=== PATIENT | male | born 1945 | race Caucasian/White ===

== ENCOUNTER 2017-07-10 11:35 | Day surgery (SDC) | payer MEDICARE, BC ==
[~2017-07-10] VITALS: Ht 167.6 cm; Wt 87.5 kg
[~2017-07-10 11:35] MED LIST: AVAPRO TAB150 MG/TAB PO; COREG 25MG25 MG/TAB PO; COUMADIN4 MG PO; DARVOCET-N-101 UDTAB PO; LASIX 20MG TABL20 MG PO; LEXAPRO20 MG PO; LYRICA75 MG PO; NIACIN PO; NTG 0.4; VYTORIN PO
[2017-07-10] MEDS ORDERED: COZAAR 50MG50 MG/TAB PO (11:56)
[2017-07-10] MEDS ORDERED: NORCO 325 MG-101 TAB PO (11:56)
[2017-07-10] MEDS ORDERED: CRESTOR40 MG PO (11:57)
[2017-07-10] MEDS ORDERED: EPA FISH OIL1 SGL PO (11:57)
[2017-07-10] MEDS ORDERED: DEMADEX 20MG20 M1 PO (11:57)
[2017-07-10] MEDS ORDERED: CYMBALTA 20MG20 MG PO (11:58)
[2017-07-10 12:11] VITALS: BP 123/70; PULSE 80; TEMP 98.1
[2017-07-10] MEDS ORDERED: ZANTAC 150MG T150 MG PO (13:27)
[2017-07-10 13:35] VITALS: BP 101/63; PULSE 66; TEMP 97.7
[2017-07-10 13:45] VITALS: BP 111/66; PULSE 60
[2017-07-10 14:00] VITALS: BP 114/64; PULSE 60
[2017-07-10 14:15] VITALS: BP 106/61; PULSE 61
[2017-07-10 14:30] VITALS: BP 109/65; PULSE 60
== END 2017-07-10 14:50 | disposition home or self-care (01) ==
LOC: SDCO 11:35
DX: K29.30 Chronic superficial gastritis without bleeding (principal); I25.10 Atherosclerotic heart disease of native coronary artery without angina pectoris; Z86.718 Personal history of other venous thrombosis and embolism; Z79.01 Long term (current) use of anticoagulants; I11.0 Hypertensive heart disease with heart failure; I50.9 Heart failure, unspecified; G47.33 Obstructive sleep apnea (adult) (pediatric); Z85.828 Personal history of other malignant neoplasm of skin; Z85.46 Personal history of malignant neoplasm of prostate; Z95.1 Presence of aortocoronary bypass graft; Z87.11 Personal history of peptic ulcer disease; Z95.810 Presence of automatic (implantable) cardiac defibrillator
CPT/HCPCS: OP; J7030

== ENCOUNTER 2021-11-11 11:04 | Day surgery (SDC) | payer MEDICARE, BC ==
[~2021-11-11] VITALS: Ht 167.6 cm; Wt 91.8 kg
[~2021-11-11 11:04] MED LIST changes: +COZAAR 50MG50 MG/TAB PO; +CRESTOR40 MG PO; +CYMBALTA 20MG20 MG PO; +DEMADEX 20MG20 M1 PO; +EPA FISH OIL1 SGL PO; +NORCO 325 MG-101 TAB PO; +ZANTAC 150MG T150 MG PO
[2021-11-11 13:55] VITALS: BP 146/61; PULSE 75; TEMP 98.2
[2021-11-11] MEDS ORDERED: TOPROL XL 50MG50 MG PO (14:12)
[2021-11-11] MEDS ORDERED: CELEXA 20MG20 MG/TAB PO (14:13)
[2021-11-11] MEDS ORDERED: COZAAR 25MG25 MG/TAB PO (14:14)
[2021-11-11] MEDS ORDERED: CRESTOR40 MG PO (14:15)
[2021-11-11] MEDS ORDERED: NORCO 325 MG-101 TAB PO (14:16)
[2021-11-11] MEDS ORDERED: EPA FISH OIL1 SGL PO (14:17)
[2021-11-11] MEDS ORDERED: COUMADIN4 MG PO (14:18)
[2021-11-11] MEDS ORDERED: LOVENOX150 MG/ML SQ (14:19)
[2021-11-11 15:20] VITALS: BP 132/88; PULSE 61; TEMP 97
[2021-11-11 15:35] VITALS: BP 140/76; PULSE 64
[2021-11-11 15:50] VITALS: BP 134/79; PULSE 61
[2021-11-11 16:40] VITALS: BP 117/65; PULSE 60
== END 2021-11-11 16:06 ==
LOC: SDCO 11:04
DX: Z12.11 Encounter for screening for malignant neoplasm of colon (principal); K57.30 Diverticulosis of large intestine without perforation or abscess without bleeding; K21.9 Gastro-esophageal reflux disease without esophagitis; K22.70 Barrett's esophagus without dysplasia; G47.33 Obstructive sleep apnea (adult) (pediatric); Z79.01 Long term (current) use of anticoagulants; Z79.899 Other long term (current) drug therapy; Z87.891 Personal history of nicotine dependence
CPT/HCPCS: 43239; G0121; J2704; J3010; J7120; Q9967